=== PATIENT | male | born 1990 | race Two or more races ===

== ENCOUNTER 2021-09-02 03:15 | Emergency (ER) | payer SELFPAY ==
[~2021-09-02] VITALS: Ht 165.1 cm; Wt 90.7 kg
[2021-09-02 03:36] VITALS: BP 147/99
== END 2021-09-02 08:16 | disposition home or self-care (01) ==
LOC: ER 03:15
DX: S16.1XXA Strain of muscle, fascia and tendon at neck level, initial encounter (principal); S01.531A Puncture wound without foreign body of lip, initial encounter; R51.9 Headache, unspecified; F17.210 Nicotine dependence, cigarettes, uncomplicated; V49.49XA Driver injured in collision with other motor vehicles in traffic accident, initial encounter; Y93.89 Activity, other specified; Y92.488 Other paved roadways as the place of occurrence of the external cause; Y99.8 Other external cause status
CPT/HCPCS: 70450; 70486; 72125